=== PATIENT | female | born 1995 | race African-American/Black ===

== ENCOUNTER 2021-08-13 16:44 | Outpatient (REF) | payer BC, SELFPAY ==
[2021-08-13 17:26] LABS: Influenza A PCR NEGATIVE (Negative); Influenza B PCR NEGATIVE (Negative); Resp Syncy Virus RNA Qual PCR NEGATIVE (Negative); SARS COV2 PCR INHOUSE NEGATIVE (Negative)
== END 2021-08-13 16:45 | disposition home or self-care (01) ==
LOC: HO.LNP 16:44
PROVIDERS: Visit Provider Physician Assistant
DX: Z20.822 Contact with and (suspected) exposure to COVID-19 (principal); R05.9 Cough, unspecified; J98.01 Acute bronchospasm
CPT/HCPCS: 0241U